=== PATIENT | female | born 1935 | race Hispanic/Latino ===

== ENCOUNTER 2017-02-05 08:45 | Day surgery (SDC) | payer MEDICARE, BC ==
[2017-02-02 11:35] VITALS: BMI 18.3
[2017-02-05] MEDS ORDERED: Etomidate 20 mg/10ml Inj IV ONE ×2 (09:57→09:58)
[2017-02-05] MEDS ORDERED: Midazolam 2 MG/2 ML VIAL ONE (10:11)
[2017-02-05] MEDS ORDERED: Sodium Chloride 0.9% 1,000 ML IV SCH (10:30)
[2017-02-05 10:48] VITALS: O2SAT 99
[2017-02-05 10:58] VITALS: RESP 16
[2017-02-05 11:51] VITALS: BP 131/69; PULSE 70; TEMP 98.1
== END 2017-02-05 12:14 | disposition home or self-care (01) ==
LOC: ENDO 08:45
PROVIDERS: ATTEND Internal Medicine Gastroenterology
DX: K25.9 Gastric ulcer, unspecified as acute or chronic, without hemorrhage or perforation (principal); K29.50 Unspecified chronic gastritis without bleeding; K44.9 Diaphragmatic hernia without obstruction or gangrene; D50.9 Iron deficiency anemia, unspecified
CPT/HCPCS: 43239; 88305; 88312; 88342; J2250; J7040 ×2

== ENCOUNTER 2017-03-12 08:34 | Day surgery (SDC) | payer MEDICARE, BC ==
[2017-02-02 11:35] VITALS: BMI 18.3
[2017-03-12 09:07] VITALS: RESP 17
[2017-03-12] MEDS ORDERED: Propofol 10 mg/ml Inj (20 ML) ONE (09:23)
[2017-03-12 09:31] LABS: BASO # 0.08 K/mm3 (0.0-2.0); BASO % 1.4 % (0.0-3.0); EOS % 0.7 % (1.5-5.0); GRAN # 4.84 (1.4-6.5); GRAN % 82.7 % (50.0-68.0); HEMOGLOBIN 11.8 gm/dL (12.0-16.0); LYMPH # 0.5 (1.2-3.4); MEAN CELL VOLUME 85.7 fL (80.0-105.0); MEAN CORPUSCULAR HEMOGLOBIN 29.6 pg (25.0-35.0); MEAN CORPUSCULAR HGB CONC 34.6 g/dl (31.0-37.0); MEAN PLATELET VOLUME 9.6 fl (7.0-11.0); MONO # 0.4 (0.1-0.6); MONO % 7.2 % (1.0-6.0); PLATELET COUNT 226 10^3/uL (120.0-450.0); RBC 3.98 10^6/uL (3.5-6.1); RED CELL DISTRIBUTION WIDTH 16.9 % (11.5-14.5); WHITE BLOOD COUNT 5.9 10^3/ul (4.5-11.0)
[2017-03-12] MEDS ORDERED: Phenylephrine 10 mg/ml Inj ONE (09:49)
[2017-03-12] MEDS ORDERED: ePHEDrine 50 mg/ml Inj ONE (09:49)
[2017-03-12] MEDS ORDERED: Sodium Chloride 0.9% 1,000 ML IV SCH (10:15)
[2017-03-12 11:01] VITALS: BP 126/72; PULSE 73; TEMP 97.6; O2SAT 100
== END 2017-03-12 11:59 | disposition home or self-care (01) ==
LOC: ENDO 08:34
PROVIDERS: ATTEND Internal Medicine Gastroenterology
DX: D12.2 Benign neoplasm of ascending colon (principal); D12.5 Benign neoplasm of sigmoid colon; K57.30 Diverticulosis of large intestine without perforation or abscess without bleeding; K64.8 Other hemorrhoids; D50.9 Iron deficiency anemia, unspecified; I10 Essential (primary) hypertension
CPT/HCPCS: 36415; 45381; 45385; 85025; 88305; J2370; J2704; J7040 ×2

== ENCOUNTER 2017-04-27 09:02 | Day surgery (SDC) | payer MEDICARE, BC ==
[2017-04-19 12:29] VITALS: BMI 17.8
[2017-04-27] MEDS ORDERED: Sodium Chloride 0.9% 1,000 ML IV SCH (09:30)
[2017-04-27] MEDS ORDERED: Propofol 10 mg/ml Inj (20 ML) ONE (11:23)
[2017-04-27] MEDS ORDERED: Etomidate 20 mg/10ml Inj IV ONE (11:25)
[2017-04-27 12:53] VITALS: BP 151/62; PULSE 62; RESP 16; TEMP 97.6; O2SAT 100
== END 2017-04-27 14:02 | disposition home or self-care (01) ==
LOC: ENDO 09:02
PROVIDERS: ATTEND Internal Medicine Gastroenterology
DX: D50.9 Iron deficiency anemia, unspecified (principal); K22.70 Barrett's esophagus without dysplasia; I10 Essential (primary) hypertension
CPT/HCPCS: 43235; J2001; J2704; J3010; J7040

== ENCOUNTER 2018-08-16 10:35 | Emergency (ER) | payer MEDICARE, BC ==
[2018-08-16 10:41] VITALS: BMI 16.7
[2018-08-16 10:46] VITALS: TEMP 98
--- NOTE | 2018-08-16 10:47 | ED PDOC ---
Arrival/HPI - General Time Seen by Provider: 08/16/18 10:37 Historian: Patient - History of Present Illness Narrative History of Present Illness (Text): 08/16/18 10:43 83yo female with pmhx of HTN, anemia who present with complaint of head laceration s/p trauma less than hour ago. The son by the bedside states patient's leg gave out while she was ambulating back from a store with a cane and she fell and sustained a cut to the back of her head. She denies dizziness, focal weakness, LOC, nausea, vomiting, diaphoresis, visual changes, any other complaint. Past Medical History - Provider Review Nursing Documentation Reviewed: Yes - Infectious Disease Hx of Infectious Diseases: None - Tetanus Immunization Tetanus Immunization: Unknown - Cardiac Hx Pacemaker: No - Pulmonary Hx Chronic Obstructive Pulmonary Disease (COPD): No - Neurological Hx Paralysis: No - HEENT Hx HEENT Disorder: Yes (eyeglasses) - Renal Hx Renal Failure: No - Endocrine/Metabolic Hx Diabetes Mellitus Type 1: No Hx Diabetes Mellitus Type 2: No Hx Hypothyroidism: No - Hematological/Oncological Hx Blood Transfusions: Yes (01/2017) Hx Blood Transfusion Reaction: No - Integumentary Hx Dermatological Disorder: Yes Other/Comment: small 1cm round redness to inner left foot outer great toe, multiple skin discolorations both arms - Musculoskeletal/Rheumatological Hx Musculoskeletal Disorders: Yes - Gastrointestinal Hx Gastroesophageal Reflux: No - Genitourinary/Gynecological Hx Genitourinary Disorders: No - Psychiatric Hx Emotional Abuse: No Hx Physical Abuse: No Hx Substance Use: No - Surgical History Hx Hysterectomy: Yes - Anesthesia Hx Anesthesia Reactions: No Hx Malignant Hyperthermia: No - Suicidal Assessment Feels Threatened In Home Enviroment: No Family/Social History - Physician Review Nursing Documentation Reviewed: Yes Family/Social History: Unknown Family HX Smoking Status: Never Smoked Hx Alcohol Use: Yes (HAD OCCASIONAL DRINK, PRESENTLY NONE AT ALL) Hx Substance Use: No Hx Substance Use Treatment: No Allergies/Home Meds Allergies/Adverse Reactions: Allergies No Known Allergies Allergy (Verified 03/08/17 13:45) Home Medications: Home Meds Medication Instructions Recorded Confirmed Folic Acid 1 mg PO QAM 12/30/16 04/27/17 Valsartan/Hydrochlorothiazide 1 tab PO QAM 02/02/17 04/27/17 [Valsartan and Hydrochlorothiazide 12.5 mg-160] Omeprazole 40 mg PO QAM 02/05/17 04/27/17 RX: amLODIPine [Norvasc] 5 mg PO QAM 03/08/17 04/27/17 Aspirin [Adult Low Dose Aspirin EC] 81 mg PO DAILY 03/12/17 04/27/17 Review of Systems - Physician Review All systems were reviewed & negative as marked: Yes - Review of Systems Constitutional: Normal Eyes: Normal ENT: Normal Respiratory: Normal Cardiovascular: Normal Gastrointestinal: Normal Genitourinary Female: Normal Musculoskeletal: Normal Skin: Laceration Neurological: Normal Endocrine: Normal Hemo/Lymphatic: Normal Psychiatric: Normal Physical Exam Vital Signs Reviewed: Yes Vital Signs Temp Pulse Resp BP Pulse Ox 08/16/18 10:36 97.8 F 88 18 168/74 H 97 Temperature: Afebrile Blood Pressure: Normal Pulse: Regular Respiratory Rate: Normal Appearance: Positive for: Well-Appearing, Non-Toxic, Comfortable Pain Distress: None Mental Status: Positive for: Alert and Oriented X 3 - Systems Exam Head: Present: Atraumatic, Normocephalic Pupils: Present: PERRL Extroacular Muscles: Present: EOMI Conjunctiva: Present: Normal Mouth: Present: Moist Mucous Membranes Neck: Present: Normal Range of Motion Respiratory/Chest: Present: Clear to Auscultation, Good Air Exchange. No: Respiratory Distress, Accessory Muscle Use Cardiovascular: Present: Regular Rate and Rhythm, Normal S1, S2. No: Murmurs Abdomen: No: Tenderness, Distention, Peritoneal Signs Back: Present: Normal Inspection Upper Extremity: Present: Normal Inspection. No: Cyanosis, Edema Lower Extremity: Present: Normal Inspection. No: Edema Neurological: Present: GCS=15, CN II-XII Intact, Speech Normal Skin: Present: Warm, Dry, Normal Color, Laceration (Bleeding punture wound with abrasion noted on posterior scalp), Abrasion. No: Rashes Psychiatric: Present: Alert, Oriented x 3, Normal Insight, Normal Concentration Medical Decision Making ED Course and Treatment: 08/16/18 13:10 wound was irrigated with NS and bleeding was controlled with silver nitrate and Dermabond. Dressing applied. She notes that she is up to date with her TD booster. She remained Neurologically intact and AAO x3 in ED Head CT IMPRESSION: No acute intracranial abnormalities. No significant findings to account for the clinical presentation. High posterior convexity scalp contusion/laceration extending to the calvarium without calvarial fracture or underlying intracranial abnormality. Stable atrophy. Result was DW both pt and the family members and pt was DC home to f/u with her PMD. - RAD Interpretation Radiology Orders: 08/16/18 10:42 HEAD W/O CONTRAST [CT] Stat Disposition/Present on Arrival - Present on Arrival Any Indicators Present on Arrival: No History of DVT/PE: No History of Uncontrolled Diabetes: No Urinary Catheter: No History Surgical Site Infection Following: None - Disposition Have Diagnosis and Disposition been Completed?: Yes Diagnosis: Head injury, Abrasion head Disposition: HOME/ ROUTINE Disposition Time: 12:10 Patient Plan: Discharge Condition: STABLE Discharge Instructions (ExitCare): Laceration Repair With Glue (DC) Additional Instructions: Follow up with your Doctor Return to ED for any new or worsening symptoms Referrals: Cash Perez MD [Primary Care Provider] - Follow up with primary Forms: [employer] ([place])
--- NOTE | 2018-08-16 11:56 | CT ---
Date of service: 08/16/2018 PROCEDURE: CT HEAD WITHOUT CONTRAST. HISTORY: s/p head injury COMPARISON: 09/23/2016 TECHNIQUE: Axial computed tomography images were obtained through the head/brain without intravenous contrast. Supplemental Coronal and Sagittal projections created and reviewed. Radiation dose: Total exam DLP = 840.72 mGy-cm. This CT exam was performed using one or more of the following dose reduction techniques: Automated exposure control, adjustment of the mA and/or kV according to patient size, and/or use of iterative reconstruction technique. FINDINGS: HEMORRHAGE: No intracranial hemorrhage. BRAIN: No mass effect or edema. Cortical and cerebellar atrophy, periventricular small vessel disease. VENTRICLES: Unremarkable. No hydrocephalus. CALVARIUM: Unremarkable. PARANASAL SINUSES: Unremarkable as visualized. No significant inflammatory changes. MASTOID AIR CELLS: Unremarkable as visualized. No inflammatory changes. OTHER FINDINGS: High midline scalp contusion/laceration extending to the calvarium. No calvarial or adjacent intracranial abnormality identified. IMPRESSION: No acute intracranial abnormalities. No significant findings to account for the clinical presentation. High posterior convexity scalp contusion/laceration extending to the calvarium without calvarial fracture or underlying intracranial abnormality. Stable atrophy.
[2018-08-16] MEDS ORDERED: Silver Nitrate Topical - Stick TOP ONE (12:23)
[2018-08-16 13:00] VITALS: BP 159/89; PULSE 78; RESP 19; O2SAT 98
== END 2018-08-16 13:03 | disposition home or self-care (01) ==
LOC: ED 10:35
DX: S00.01XA Abrasion of scalp, initial encounter (principal); W01.0XXA Fall on same level from slipping, tripping and stumbling without subsequent striking against object, initial encounter